=== PATIENT | female | born 1985 | race Caucasian/White ===

== ENCOUNTER → 2020-04-12 11:59 | Outpatient (CLI) | payer OTHER, SELFPAY ==
[2020-04-12 14:02] LABS: Thyroid Stim Hormone (TSH) 8.56 uIU/mL (0.358-3.74)
[2020-04-16 14:45] LABS: Free T3 2.5 pg/mL (2.18-3.98); T4 Free Direct 0.99 ng/dL (0.76-1.46)
== END ==
PROVIDERS: Visit Provider Obstetrics & Gynecology
DX: E03.9 Hypothyroidism, unspecified (principal)
CPT/HCPCS: 36415; 84439; 84443; 84481